=== PATIENT | female | born 1985 | race African-American/Black ===

== ENCOUNTER 2019-04-27 15:43 | Emergency (ER) | payer SELFPAY ==
[~2019-04-27] VITALS: Ht 160 cm; Wt 103.0 kg
[2019-04-27] MEDS ORDERED: ONDANSETRON 4 MG TAB.RAPDIS ONE (16:15)
[2019-04-27] MEDS ORDERED: ACETAMINOPHEN ES 500 MG TABLET ONE (16:15)
[2019-04-27] MEDS ORDERED: ONDANSETRON 4 MG TAB.RAPDIS SL ONE (16:30)
[2019-04-27] MEDS ORDERED: ACETAMINOPHEN ES 500 MG TABLET PO ONE (16:30)
[2019-04-27 16:54] LABS: APPEARANCE,URINE Clear (CLEAR); BILIRUBIN,URINE Negative (NEGATIVE); BLOOD, URINE Negative Ery/uL (NEGATIVE); COLOR,URINE Yellow (YELLOW); KETONES,URINE Negative (NEGATIVE); LEUKOCYTE ESTERASE ,URINE Negative (NEGATIVE); NITRITE, URINE Negative (NEGATIVE); PH,URINE 5.5 (5.0-8.0); PROTEIN,URINE Negative (NEGATIVE); UGLUCOSE Negative (NEGATIVE); UROBILINOGEN,URINE 0.2 EU/dL (0.2)
--- NOTE | 2019-04-27 17:14 | NUR ---
PT EVALUATED BY KEIRY LUCAS GIVEN MEDICVATIONS URINE SENT TO LAB PT DISCHARGED TO HOME WITH FRIEND WITH STEADY GAIT. P CAME TO EMERGENCY ROOM FOR VARIOUS SYMPTOMS.
[2019-04-27 17:16] VITALS: BP 120/75
== END 2019-04-27 17:16 | disposition home or self-care (01) ==
LOC: ER 15:46
DX: B34.8 Other viral infections of unspecified site (principal); R11.2 Nausea with vomiting, unspecified; R53.1 Weakness; R42 Dizziness and giddiness
CPT/HCPCS: 81001; 99283; Q0162; 81000-TC